=== PATIENT | female | born 1940 | race Caucasian/White ===

== ENCOUNTER 2017-05-11 15:09 | Inpatient (IN) | payer OTHER, MEDICARE ==
[~2017-05-11] VITALS: Ht 167.6 cm; Wt 75.7 kg
[~2017-05-11 15:09] MED LIST: ASPIRIN81 M2 PO; B COMPLETE1 EACH PO; CALCIUM CITRAT250 MG PO; CELEBREX200 MG PO; COQ-10100 MG PO; FISH OIL 1,0001 EAC7 PO; PRILOSEC20 MG PO; SYNTHROID88 MCG PO; TOPROL XL25 MG PO; TRIAMTERENE-HC1 EACH PO; VITAMIN C1000 MG PO; VITAMIN D1000 INTUN PO; ZOCOR40 MG PO
[2017-05-11 16:56] LABS: HEMATOCRIT 41.3 % (36.0-46.0); HEMOGLOBIN 14.4 G/DL (11.9-15.5); MCH 31.6 PG (29.0-34.0); MCHC 34.9 G/DL (30.0-36.0); MCV 90.6 FL (83-99); PLATELET COUNT 225 K/uL (156-360); RBC DIS.WIDTH-CV 12.9 % (11.8-14.6); RBC DIS.WIDTH-SD 42.1 % (39-53); RED BLOOD COUNT 4.56 M/uL (3.80-5.20); WHITE BLOOD COUNT 8.4 K/uL (4.1-10.2)
[2017-05-11 17:04] LABS: ALBUMIN 3.9 g/dL (3.2-4.8); CHLORIDE 107 mEq/L (99-109); POTASSIUM 3.8 mEq/L (3.7-5.4); SODIUM 138 mEq/L (136-147)
[2017-05-11 17:06] LABS: GLUCOSE 95 mg/dL (70-99)
[2017-05-11 17:07] LABS: TOTAL PROTEIN 6.6 g/dL (6.4-8.3)
[2017-05-11 17:08] LABS: TOTAL BILIRUBIN 0.4 mg/dL (0.0-1.0)
[2017-05-11 17:10] LABS: ALKALINE PHOSPHATASE 70 IU/L (3-129); CREATININE 1.1 mg/dL (0.6-1.3); GFR ESTIMATE (CALCULATED) 51 mL/min/
[2017-05-11 17:11] LABS: UREA NITROGEN (BUN) 19 mg/dL (9-23)
[2017-05-11 17:12] LABS: AST (GOT) 22 IU/L (2-34)
[2017-05-11 17:13] LABS: ALT (GPT) 18 IU/L (3-49); LIPASE 27 U/L (1.0-51.0)
[2017-05-11 17:16] LABS: TROP-I INTERPRETATION NEGATIVE
[2017-05-11] MEDS ORDERED: MELOXICAM15 MG PO (18:30)
[2017-05-11] MEDS ORDERED: OMEPRAZOLE40 M1 PO (18:31)
[2017-05-11] MEDS ORDERED: LEVOTHYROXINE75 MCG PO (18:32)
[2017-05-11] MEDS ORDERED: LOPRESSOR25 MG PO (18:32)
[2017-05-11] MEDS ORDERED: NITROGLYCERIN0.4 MG SL (18:33)
[2017-05-11 20:26] VITALS: BP 133/70
[2017-05-12 00:29] VITALS: BP 112/72
[2017-05-12 01:16] LABS: TROP-I INTERPRETATION POSITIVE
[2017-05-12 01:17] LABS: TROPONIN-I 1.84 ng/mL (0.0-0.30)
[2017-05-12 02:40] VITALS: BP 140/86
[2017-05-12 06:07] LABS: HEMATOCRIT 40.4 % (36.0-46.0); HEMOGLOBIN 13.7 G/DL (11.9-15.5); MCH 30.9 PG (29.0-34.0); MCHC 33.9 G/DL (30.0-36.0); MCV 91.2 FL (83-99); PLATELET COUNT 209 K/uL (156-360); RBC DIS.WIDTH-SD 43.7 % (39-53); RED BLOOD COUNT 4.43 M/uL (3.80-5.20); WHITE BLOOD COUNT 7.2 K/uL (4.1-10.2)
[2017-05-12 06:16] LABS: TROP-I INTERPRETATION POSITIVE
[2017-05-12 08:17] LABS: ALBUMIN 3.7 G/DL (3.2-4.8); ALKALINE PHOSPHATASE 54 IU/L (3-129); ALT (GPT) 14 IU/L (3-49); AST (GOT) 22 IU/L (2-34); CHLORIDE 107 MEQ/L (99-109); CREATININE 1.1 MG/DL (0.6-1.3); GFR ESTIMATE (CALCULATED) 51 mL/min/; GLUCOSE 97 mg/dL (70-99); POTASSIUM 3.8 MEQ/L (3.7-5.4); SODIUM 144 MEQ/L (136-147); TOTAL BILIRUBIN 0.5 MG/DL (0.0-1.0); TOTAL PROTEIN 5.7 G/DL (6.4-8.3); UREA NITROGEN (BUN) 19 mg/dL (9-23)
[2017-05-12 08:31] VITALS: BP 144/79
[2017-05-12 13:52] VITALS: BP 104/70
[2017-05-12 15:41] VITALS: BP 97/56
[2017-05-12 20:20] VITALS: BP 130/68
[2017-05-13 00:44] VITALS: BP 102/58
[2017-05-13 03:24] LABS: BASOPHIL COUNT 0.1 K/uL (0-0.1); EOSINOPHIL (%) 2.5 % (0-5); EOSINOPHIL COUNT 0.2 K/uL (0-0.3); HEMATOCRIT 39.9 % (36.0-46.0); HEMOGLOBIN 13.8 G/DL (11.9-15.5); IMMATURE GRANULOCYTE (%) 0.6 % (0.0-0.7); LYMPHOCYTE (%) 28.8 % (15-42); MCH 31.4 PG (29.0-34.0); MCHC 34.6 G/DL (30.0-36.0); MCV 90.9 FL (83-99); MONOCYTE (%) 7.8 % (3-12); MONOCYTE COUNT 0.6 K/uL (0-0.8); NEUTROPHIL (%) 59.3 % (45-76); NEUTROPHIL COUNT 4.2 K/uL (1.8-6.4); PLATELET COUNT 216 K/uL (156-360); RBC DIS.WIDTH-CV 13.2 % (11.8-14.6); RBC DIS.WIDTH-SD 42.9 % (39-53); RED BLOOD COUNT 4.39 M/uL (3.80-5.20); WHITE BLOOD COUNT 7.1 K/uL (4.1-10.2)
[2017-05-13 03:29] LABS: CHLORIDE 112 mEq/L (99-109); POTASSIUM 3.8 mEq/L (3.7-5.4); SODIUM 139 mEq/L (136-147)
[2017-05-13 03:53] LABS: GLUCOSE 119 mg/dL (70-99)
[2017-05-13 03:57] LABS: CREATININE 1.2 mg/dL (0.6-1.3); GFR ESTIMATE (CALCULATED) 46 mL/min/
[2017-05-13 03:58] LABS: UREA NITROGEN (BUN) 22 mg/dL (9-23)
[2017-05-13 05:12] VITALS: BP 113/67
== END 2017-05-13 06:19 | disposition short-term general hospital (02) | DRG 281 ==
LOC: EME 15:09 → EDOF 19:01 → ENRESERV 19:02 → 5WEST 20:20 → 4EAST 05-12 01:23 → 5WEST 05-12 01:23 → ENRESERV 05-12 01:25 → 4EAST 05-12 02:17
PROVIDERS: Emergency Medicine; Internal Medicine; Nurse Practitioner Adult Health
DX: T82.855A Stenosis of coronary artery stent, initial encounter (principal); I21.4 Non-ST elevation (NSTEMI) myocardial infarction; Y83.1 Surgical operation with implant of artificial internal device as the cause of abnormal reaction of the patient, or of later complication, without mention of misadventure at the time of the procedure; I25.110 Atherosclerotic heart disease of native coronary artery with unstable angina pectoris; E03.9 Hypothyroidism, unspecified; E78.00 Pure hypercholesterolemia, unspecified; E78.5 Hyperlipidemia, unspecified; I10 Essential (primary) hypertension; I25.2 Old myocardial infarction; I25.5 Ischemic cardiomyopathy; K21.9 Gastro-esophageal reflux disease without esophagitis; I34.0 Nonrheumatic mitral (valve) insufficiency
CPT/HCPCS: 71046; 80048; 80053; 83690; 84484; 85025; 85027; 85730; 93005; 99281; 99283; C1769; C1887; G0378; J1644; J2250; J3010; J7040